=== PATIENT | female | born 1980 | race Hispanic/Latino ===

== ENCOUNTER 2017-01-18 12:16 | Day surgery (SDC) | payer BC ==
[~2017-01-18] VITALS: Ht 165.1 cm; Wt 71.7 kg
[~2017-01-18 12:16] MED LIST: ESTRADIOL2 MG PO; FLONASE ALLERG9.9 ML NS; IRON325 M1 PO; LEVOTHYROXINE25 MCG PO; MOTRIN800 MG PO; NORCO 5-325 TA1 EACH PO; PRENATAL VITAM1 EACH PO; PROVERA10 MG PO; SINGULAIR10 MG PO; VALIUM5 MG PO
[2017-01-18] MEDS ORDERED: VITAMIN B COMP1 EACH PO (12:35)
[2017-01-18] MEDS ORDERED: VITAMIN D2000 UNI1 PO (12:35)
--- NOTE | 2017-01-22 08:06 | OR ---
[facility] [address] [place], [place] [address] Signed DATE OF OPERATION: 01/18/2017 SURGEON: Amber Chaves MD PREOPERATIVE DIAGNOSES: Difficult peripheral intravenous access, need for colonoscopy. POSTOPERATIVE DIAGNOSES: Difficult peripheral intravenous access, need for colonoscopy. PROCEDURE: Right internal jugular central venous catheter placement. ANESTHESIA: 1% lidocaine. INDICATION: This 36-year-old woman is planned for colonoscopy today, but multiple attempts with ultrasound guidance by nursing staff to place a peripheral IV for administration of intravenous sedation have been unsuccessful. This includes both saphenous veins. At this point, central venous catheterization will be required to provide for IV access. She notes that she has had similar problems in the past, so she does not recall having had a central catheter before. She understands the risks of bleeding, infection, pneumothorax, and other unforeseen complications related to its placement and wished to proceed. FINDINGS: Dark nonpulsatile blood was noted from the right internal jugular vein. Good flow was noted. A postprocedure chest x-ray showed optimal position of the tip of the catheter in superior vena cava without sign of complication including no evidence of pneumothorax. PROCEDURE IN DETAIL: A written consent form was signed by the patient. In the supine position with mild Trendelenburg positioning, her face was turned towards the left. The right neck and subclavian area was prepared with chlorhexidine solution and draped sterilely. 1% lidocaine was injected over the right sternocleidomastoid muscle inferior to the crossing vein. Using the Seldinger technique, the right internal jugular vein was easily accessed. Dark nonpulsatile blood was noted. A flexible J-wire was passed down the needle and the needle was removed. Sterile draping and gown and gloves per hospital Electronically Signed By: AMBER CHAVES MD 01/22/17 0806 PATIENT NAME: JOSELUIS BOBO OPERATIVE REPORT DATE OF : 80 PHYSICIAN: AMBER CHAVES MD REPORT #: [id number] REPORT IS CONFIDENTIAL AND NOT TO BE RELEASED WITHOUT AUTHORIZATION [facility] [address] [place], [place] [address] Signed protocol were used as it is noted. The site was incised with an 11 blade and dilated with enclosed blue dilator, and subsequently a previously inspected and irrigated Arrow blue tip triple-lumen catheter was passed over the wire without problem. The wire was removed and aspiration on the distal port showed dark nonpulsatile blood. The Clave was replaced, and the catheter was once again aspirated and flushed. The catheter was withdrawn a bit, and a collar was applied to the catheter and secured to the skin with a nylon suture. A SorbaView dressing was applied. A postprocedure chest x-ray was obtained and found to be normal with good positioning. MD ROSHNI Oleary/WILL /[id number] Electronically Signed By: AMBER CHAVES MD 01/22/17 0806 PATIENT NAME: JOSELUIS BOBO OPERATIVE REPORT DATE OF : 80 PHYSICIAN: AMBER CHAVES MD REPORT #: [id number] REPORT IS CONFIDENTIAL AND NOT TO BE RELEASED WITHOUT AUTHORIZATION
--- NOTE | 2017-01-22 08:06 | OR ---
[facility] [address] [place], [place] [address] Signed DATE OF OPERATION: 01/18/2017 SURGEON: Amber Chaves MD PREOPERATIVE DIAGNOSES: 1. Familial polyposis, status post ileoanal pull-through with total proctocolectomy. 2. History of duodenal polyps. POSTOPERATIVE DIAGNOSES: 1. Multiple gastric polyps. 2. Unlikely duodenal polyps. 3. J-pouch with typical findings of submucosal nodularity. PROCEDURE: 1. Esophagogastroduodenoscopy with biopsy. 2. J-pouch endoscopy with biopsy. ANESTHESIA: Intravenous sedation, fentanyl 100 mcg, Versed 7 mg. INDICATION: This 36-year-old woman is known to have familial polyposis and underwent proctocolectomy with ileoanal pull-through (J-pouch). She underwent upper endoscopy [place] [address] Weston and was found to have duodenal polyps and had Endomark tattoo, marking of the duodenal mucosa. She last underwent upper endoscopy by me in 2011. Surveillance upper endoscopy was indicated to assess for duodenal polyps. Additionally, the patient has had some issues regarding her J-pouch and that she remains continent. She asked that the J-pouch be evaluated as well. She understands the risks of bleeding, infection, and perforation related to the endoscopic procedures and wished to proceed. FINDINGS: On upper endoscopy, she had a normal esophagus. The stomach had multiple small polyps almost certainly nonadenomatous type. The duodenum did have evidence of prior Endomark tattoo dye in the region of the duodenal bulb. I saw no obvious large polyps. There were two areas that were suggestive of possible small polyps and these were excised and a quality audit representative gastric polyp was biopsied as well. On the J-pouch, typical anatomy was noted. She does have a somewhat narrow anorectal opening related to her anastomosis from the past, but no stricture per se. There was no evidence of perianal swelling. The J-pouch had normal size capacity. The ileum and Electronically Signed By: AMBER CHAVES MD 01/22/17 0806 PATIENT NAME: JOSELUIS BOBO OPERATIVE REPORT DATE OF : 80 PHYSICIAN: AMBER CHAVES MD REPORT #: [id number] REPORT IS CONFIDENTIAL AND NOT TO BE RELEASED WITHOUT AUTHORIZATION [facility] [address] [place] [id number] Signed J-pouch itself had typical submucosal lymphoid nodules, but no sign of ulceration, neoplasm, or other problem. A quality audit representative lymphoid nodule was biopsied. PROCEDURE IN DETAIL: The patient brought to the OR as the endoscopy suite is out of commission currently, placed in lateral decubitus position after undergoing topical Hurricaine spray hypopharyngeal anesthesia. She was given intravenous sedation with full cardiopulmonary monitoring. A bite block was placed. An Olympus video upper endoscope was passed in the hypopharynx. The vocal cords were normal. Esophagus was examined throughout its length and was normal. The stomach was evaluated showing normal rugal folds with multiple small nodules, both proximally and distally. Pylorus was normal. Scope was passed through the end of the duodenum. The duodenum had a faint Endomark tattoo type finding and indicative of prior polypectomy site. The mucosa and the surrounding area did not show distinct polyps, but did show some minimal nodular changes, and therefore, these areas were excised. The scope was withdrawn from the stomach and a quality audit representative gastric polyp almost certainly representing hyperplastic type polyp was biopsied. Retroflexed view was normal. The scope was straightened, withdrawn, and removed. Remaining esophagus was normal. The table was rotated and additional sedation given. Digital rectal examination was undertaken, which was somewhat tight as is typically the case with stapled J-pouch anastomoses, but not strictured per se. The same upper endoscope was passed into the J-pouch and typical mucosa was identified including submucosal lymphoid nodules. The scope was advanced up into the ileum as far as possible, which measured a fair distance. There was no sign of actual polyp. A quality audit representative nodule was biopsied as was a similar such nodule in the low neorectum (J-pouch). The scope was retroflexed showing no anatomic problem or other issues. The scope was withdrawn and the patient was taken to the recovery room in good condition. CONCLUDING DIAGNOSES: 1. No clear evidence of duodenal polyps. Multiple gastric polyps, benign. 2. J-pouch typical appearance considering operative intervention. PLAN: Surveillance endoscopy will be appropriate depending on the findings on the biopsies. Electronically Signed By: AMBER CHAVES MD 01/22/17 0806 PATIENT NAME: JOSELUIS BOBO OPERATIVE REPORT DATE OF : 80 PHYSICIAN: AMBER CHAVES MD REPORT #: [id number] REPORT IS CONFIDENTIAL AND NOT TO BE RELEASED WITHOUT AUTHORIZATION [address] [address] Signed MD ROSHNI Oleary/KITTYL /[id number] cc: JOSUE Irving MD Electronically Signed By: AMBER CHAVES MD 01/22/17 0806 PATIENT NAME: JOSELUIS BOBO OPERATIVE REPORT DATE OF : 80 PHYSICIAN: AMBER CHAVES MD REPORT #: [id number] REPORT IS CONFIDENTIAL AND NOT TO BE RELEASED WITHOUT AUTHORIZATION
== END 2017-01-18 16:00 | disposition home or self-care (01) ==
LOC: DS 12:16 → OPS 12:16
PROVIDERS: Surgery
PROC: 05HM33Z Insertion of Infusion Device into Right Internal Jugular Vein, Percutaneous Approach (ICD-10-PCS; principal; 2017-01-18 13:00)
DX: Z45.2 Encounter for adjustment and management of vascular access device (principal); D64.9 Anemia, unspecified; F17.210 Nicotine dependence, cigarettes, uncomplicated; Z88.5 Allergy status to narcotic agent; Z88.0 Allergy status to penicillin; Z88.8 Allergy status to other drugs, medicaments and biological substances; Z98.890 Other specified postprocedural states
CPT/HCPCS: 71010; 99152; 99153; J1644; J2250; J3010

== ENCOUNTER 2018-05-28 13:07 | Day surgery (SDC) | payer BC ==
[~2018-05-28] VITALS: Ht 165.1 cm; Wt 74.8 kg
[~2018-05-28 13:07] MED LIST changes: +B COMPLEX1 EACH PO; +KELP150 MCG PO; +MULTIVITAMINS1 EAC7 PO; +VITAMIN B COMP1 EACH PO; +VITAMIN D310000 UNIT PO
--- NOTE | 2018-05-28 14:47 | NUR ---
05/28/18 1446 Corrie Watts 1436 PT ARRIVED IN PACU SLEEPY WITH NO C/O'S.
--- NOTE | 2018-05-30 09:24 | OR ---
[facility] [address] [place], [place] [address] Signed DATE OF OPERATION: 05/28/2018 SURGEON: Amber Chaves MD PREOPERATIVE DIAGNOSES: 1. Familial polyposis. 2. Surveillance for assessment of duodenal polyps. POSTOPERATIVE DIAGNOSES: 1. No certain polyps of duodenum. 2. Multiple fundic gland polyps and small pre-pyloric polyp. PROCEDURES: Esophagogastroduodenoscopy with gastric polypectomy x1 and duodenal mucosal biopsies x2. ANESTHESIA: Intravenous sedation, fentanyl 100 mcg, Versed 5 mg. INDICATION: This 37-year-old woman is a patient of Dr. Asencio and STANISLAW Irving. She is known to have a familial polyposis and has undergone total proctocolectomy with ileoanal pull-through (J-pouch). She has perfectly good function of the J-pouch. She last underwent upper endoscopy to assess for possible duodenal polyps in conjunction with her familial polyposis in 04/2016. She only had benign gastric polyps on upper endoscopy before. She is admitted to undergo upper endoscopy to assess for duodenal polyps. She understands the risks of bleeding, infection, perforation, findings. The topical agent (lidocaine atomized) was marginal and topical anesthesia. Good sedation was provided otherwise, however. She had no certain polyps of the duodenum. The areas of possible adenomatous hyperplasia were noted and these were biopsied. There was a pre-pyloric polyp, which was separate and distinct from most in the proximal stomach, which were multiple and most consistent with fundic gland polyps. This was excised as well. The flap valve was good. The esophagus was normal. DESCRIPTION OF PROCEDURE: The patient was brought to the endoscopy suite given topical anesthesia with atomized lidocaine. In the lateral decubitus position, she was given intravenous sedation to the point of slurred speech and nystagmus. Full cardiopulmonary monitoring was maintained. A bite block was placed. An Olympus video endoscope passed in the hypopharynx. Vocal cords were briefly visualized. She had a fair amount of gagging. The scope was Electronically Signed By: AMBER CHAVES MD 05/30/18 0924 PATIENT NAME: JOSELUIS BOBO OPERATIVE REPORT DATE OF : 80 REPORT #: [id number] PHYSICIAN: AMBER CHAVES MD PCP: Zuleika BEY MD REPORT IS CONFIDENTIAL AND NOT TO BE RELEASED WITHOUT AUTHORIZATION [facility] [address] [place], [place] [address] Signed advanced to the esophagus. Throughout its length, it was normal. Scope was passed to the stomach, which was insufflated with air. Excess gastric juices suctioned free. Additional sedation was given. The pre-pyloric antrum showed a small polyp that did not appear worrisome. The pylorus was normal and scope was passed through into the duodenum. The duodenum in the thirds and second portions were normal. In the second portion toward the bulbar portion showed an area of prior Endo Sami tattoo evidence. There is no clear evidence of polyp in this area. The second and third portions were surveilled closely for possible polyps. There was areas suggestive of adenomatous change, which were biopsied though there were not distinct polyps by any means. The ampulla was not even visualized. The scope was withdrawn and taken to the antrum where small pre-pyloric polyp was noted. This was excised with cold morcellation technique. Retroflexed view showed a normal flap valve and multiple fundic gland polyps. These were not excised or biopsied in any way. Scope was straightened withdrawn to the distal esophagus, which was normal. Careful withdrawal of scope showed no esophageal abnormalities. The scope was removed and the patient was taken to recovery room in good condition. CONCLUDING DIAGNOSES: 1. Familial polyposis. No clear evidence of duodenal polyps at this time. Biopsies taken of possible adenomatous change. 2. Pre-pyloric gastric polyp excised. 3. Proximal fundic gland polyps were left in situ. PLAN: We will review her pathology reports and determine the interval of time for followup endoscopy. MD ROSHNI Oleary/MODL /[id number] cc: MD Cheryl Barnett PA-C Electronically Signed By: AMBER CHAVES MD 05/30/18 0924 PATIENT NAME: JERAMIEJOSELUIS OPERATIVE REPORT DATE OF : 80 REPORT #: [id number] PHYSICIAN: AMBER CHAVES MD PCP: Zuleika BEY MD REPORT IS CONFIDENTIAL AND NOT TO BE RELEASED WITHOUT AUTHORIZATION [address] [address] Signed Copies: JOSELUIS ASENCIO MD, ERIKA PAC ~ Electronically Signed By: AMBER CHAVES MD 05/30/18 0924 PATIENT NAME: JERAMIEJOSELUISAFSHAN RIVERA OPERATIVE REPORT DATE OF : 80 REPORT #: [id number] PHYSICIAN: AMBER CHAVES MD PCP: Zuleika BEY MD REPORT IS CONFIDENTIAL AND NOT TO BE RELEASED WITHOUT AUTHORIZATION
== END 2018-05-28 15:20 | disposition home or self-care (01) ==
LOC: DS 13:07 → OPS 13:07 → DS 14:00 → OPS 15:20
PROVIDERS: Surgery
PROC: 0DB68ZZ Excision of Stomach, Via Natural or Artificial Opening Endoscopic (ICD-10-PCS; 2018-05-28)
PROC: 0DB98ZX Excision of Duodenum, Via Natural or Artificial Opening Endoscopic, Diagnostic (ICD-10-PCS; principal; 2018-05-28 14:00)
DX: D13.2 Benign neoplasm of duodenum (principal); K31.7 Polyp of stomach and duodenum; K25.9 Gastric ulcer, unspecified as acute or chronic, without hemorrhage or perforation; K29.70 Gastritis, unspecified, without bleeding; D64.9 Anemia, unspecified; F17.210 Nicotine dependence, cigarettes, uncomplicated; E66.3 Overweight; Z98.890 Other specified postprocedural states; Z88.0 Allergy status to penicillin; Z88.5 Allergy status to narcotic agent
CPT/HCPCS: 99153; G0500; J2250; J3010

== ENCOUNTER 2023-07-24 08:11 | Day surgery (SDC) | payer OTHER, BC ==
[~2023-07-24] VITALS: Ht 165.1 cm; Wt 84.5 kg
[~2023-07-24 08:11] MED LIST changes: +IBLOOD GLUCOSE TEST STRIP 1 EA TEST VI PRN; +LACTATED RINGER'S 1,000 ML IV SCH; +LIDOCAINE HCL 1% 5 ML SDV INJ ONE; +MIDAZOLAM HCL 5 MG/5 ML VIAL IV PRN; +fentaNYL citrate 100 MCG/2 ML VIAL IV PRN
[2023-07-24 09:25] LABS: PREGNANCY TEST, URINE NEGATIVE (NEG)
[2023-07-24 09:34] VITALS: BP 108/62
[2023-07-24] MEDS ORDERED: MIDAZOLAM HCL 5 MG/5 ML VIAL ONE (10:18)
[2023-07-24] MEDS ORDERED: fentaNYL citrate 100 MCG/2 ML VIAL ONE (10:18)
--- NOTE | 2023-07-24 11:25 | NUR ---
07/24/23 1125 Michelle Rojas 1115 PT ARRIVES TO THE PACU AWAKE AND TALKING WITH THE RN. RESP ARE EVEN AND UNLABORED. PT DENIES PAIN AND NAUSEA. 1124 PT WAKES AND REPORTS PAIN IN HER KNEE. PT ABLE TO ROLL TO HER BACK. PT EASILY FALLS BACK TO SLEEP WITH NO APPARENT DISTRESS. BP INCREASED TO BASELINE.
[2023-07-24 12:16] VITALS: BP 99/59
--- NOTE | 2023-07-24 12:39 | OR ---
[facility] [address] [place], [place] [address] Signed DATE OF OPERATION: 07/24/2023 SURGEON: Amber Chaves MD PREOPERATIVE DIAGNOSIS: History of total procto-colectomy with ileoanal pull-through (J-pouch) for familial polyposis. POSTOPERATIVE DIAGNOSES: 1. Upper endoscopy with gastric polyps (benign and no evidence of recurrent duodenal polyps). 2. Flexible sigmoidoscopy with no evidence of pouchitis or other abnormality. PROCEDURES: 1. Esophagogastroduodenoscopy with biopsy. 2. Flexible sigmoidoscopy with biopsy (J-pouchoscopy). ANESTHESIA: Intravenous sedation; fentanyl 150 mcg, Versed 8 mg. INDICATIONS: This 42-year-old woman is a patient of STANISLAW Irving. She is well known to me from the past. She has undergone total procto-colectomy with ileoanal pull-through (J-pouch) for familial polyposis. She underwent upper endoscopy by me in 2019, which showed a duodenal adenoma, which was negative for dysplasia. She had gastric polyps as well. Her last J-pouch endoscopy was in 2017, which showed some mucosal nodularity considered otherwise normal. She is generally symptom-free at this time. She is admitted at this time to undergo upper endoscopy to assess for duodenal polyp recurrence as well as evaluation of the J-pouch. She has no current symptoms of pouchitis. She understands the risk of bleeding, infection, and perforation related endoscopic procedures and wished to proceed. FINDINGS: Upper endoscopy showed a number of gastric polyps, which in the setting of familial polyposis are essentially benign. The duodenum was evaluated showing no obvious polyp. There was an area of prior tattoo showing no sign of recurrent adenoma of the duodenum. The esophagus and stomach were otherwise normal. She did have a fair amount of retching and gagging, which despite topical anesthesia and good sedation otherwise. On flexible sigmoidoscopy (J-pouchoscopy), there is no evidence of active pouch inflammation or other abnormality. Procedure the patient brought to the endoscopy suite and placed in Electronically Signed By: AMBER CHAVES MD 07/24/23 1239 PATIENT NAME: JOSELUIS SKINNER OPERATIVE REPORT DATE OF : 80 REPORT #: [id number] PHYSICIAN: AMBER CHAVES MD PCP: ELIZA MARSHALL MD REPORT IS CONFIDENTIAL AND NOT TO BE RELEASED WITHOUT AUTHORIZATION [facility] [address] [place] [address] Signed lateral decubitus position, given topical lidocaine pharyngeal anesthesia. A bite block was placed and she was given intravenous sedation with full cardiopulmonary monitoring. The Olympus video upper endoscope was passed in the hypopharynx. She had a fair amount of retching and resistance to the scope, but it was passed without problem or complication. Esophagus itself looked normal. Scope was passed to the stomach. There were a number of gastric polyps, all typical of familial polyposis and all benign in appearance. The antrum was left populated. Pylorus was normal. Scope was passed through into the duodenum. This was accompanied by a fair amount of retching and despite additional sedation. The area of previous adenoma with submucosal Endo jaqueline tattoo dye was noted. There was no sign of recurrent polyp there or elsewhere. The scope was withdrawn to the stomach and carefully withdrawn and removed showing no other abnormality. The scope was then removed. Plans were then made for a flexible sigmoidoscopy or pouchoscopy. Additional sedation was given. Digital rectal examination showed a somewhat narrowed anastomosis, which was somewhat uncomfortable on digital examination. This did allow for passage of the endoscope, however. The pouch was examined and found to have no evidence of active pouchitis or other abnormality. Retroflexed view did show transition between the ileum mucosa and the anal mucosa to be somewhat rough and the area was biopsied, though there was no actual neoplasm noted. The scope was removed. The patient was taken to the recovery room in good condition. CONCLUDING DIAGNOSES: 1. No evidence of recurrent duodenal polyp at this time. 2. 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 PLAN: We would recommend repeat upper endoscopy in 3-5 years or sooner if symptoms should develop. We will see her back in the office in 4-6 weeks to review her operative findings. MD ROSHNI Oleary/KITTYL /[id number] cc: Rafael Krause PA-C Electronically Signed By: AMBER CHAVES MD 07/24/23 1239 PATIENT NAME: JOSELUIS SKINNER OPERATIVE REPORT DATE OF : 80 REPORT #: [id number] PHYSICIAN: AMBER CHAVES MD PCP: ELIZA MARSHALL MD REPORT IS CONFIDENTIAL AND NOT TO BE RELEASED WITHOUT AUTHORIZATION [address] [address] Signed Copies: RAFAEL KRAUSE PAC ~ Electronically Signed By: AMBER CHAVES MD 07/24/23 1239 PATIENT NAME: JOSELUIS SKINNER OPERATIVE REPORT DATE OF : 80 REPORT #: [id number] PHYSICIAN: AMBER CHAVES MD PCP: ELIZA MARSHALL MD REPORT IS CONFIDENTIAL AND NOT TO BE RELEASED WITHOUT AUTHORIZATION
--- NOTE | 2023-07-27 16:31 | PATH ---
[facility] [address] [place], [place] [address] Signed SPECIMEN(S): A ANTRUM/PYLORUS BIOPSY SPECIMEN(S): B COLON POUCH BIOPSY SPECIMEN(S): C COLON POUCH JUNCTION BIOPSY SPECIMEN SOURCE: A. ANTRUM/PYLORUS BIOPSY B. COLON POUCH BIOPSY C. COLON POUCH JUNCTION BIOPSY CLINICAL HISTORY: Familial polyposis syndrome with ileo-anal pull through. FINAL PATHOLOGIC DIAGNOSIS: A. Antrum/pylorus, biopsy: - Polypod gastric type mucosa with tubular adenoma (one fragment). B. Colon pouch, biopsy: - Benign small bowel type mucosa, negative for dysplasia or evidence of malignancy. C. Colon pouch junction, biopsy: - Benign small bowel mucosa, negative for dysplasia. JVR:baudilio MICROSCOPIC EXAMINATION: Histologic sections of all submitted blocks are examined by light microscopy. These findings, together with the gross examination, support the pathologic diagnosis. GROSS DESCRIPTION: A. The specimen, labeled and designated "Skinner, antrum/pylorus biopsy," is received in formalin and consists of one rey soft tissue fragment, 0.3 cm. Entirely submitted in (A1). B. The specimen, labeled and designated "Skinner, colon pouch biopsy," is received in formalin and consists of three rey soft tissue fragments, ranging from 0.2-0.3 cm. Entirely submitted in (B1). C. The specimen, labeled and designated "Skinner, colon polyps junction biopsy," is received in formalin and consists of four rey soft tissue fragments, ranging from 0.2-0.4 cm. Entirely submitted in (C1). VB (under the direct supervision of a pathologist) The Gross Description was prepared using a voice recognition system. The report was reviewed for accuracy; however, sound-alike word errors, addition and/or PATIENT NAME: JOSELUIS SKINNER PATHOLOGY DATE OF : 80 REPORT #: [id number] PHYSICIAN: AUBREY SANTORO PCP: ELIZA MARSHALL MD REPORT IS CONFIDENTIAL AND NOT TO BE RELEASED WITHOUT AUTHORIZATION [facility] [address] [place], [place] [address] Signed deletions may occur. If there is any question about this report, please contact Client Services. ADDITIONAL NOTES: Immunohistochemical and/or in situ hybridization studies if performed in this case included appropriate positive controls that reacted as expected. This test was developed and its performance characteristics determined by [facility]. It has not been cleared or approved by the U.S. Food and Drug Administration. The FDA has determined that such clearance or approval is not necessary. This test is used for clinical purposes. It should not be regarded as investigational or for research. [facility] is certified under the Clinical Laboratory Improvement Amendments of 1988 (CLIA) as qualified to perform high complexity clinical laboratory testing. PERFORMING LABORATORY: Technical component was performed by [facility], [address] [place] [id number] (CLIA# [id number]). Professional interpretation was performed by [facility], [address] [place] [id number] (CLIA#: [id number]). Diagnostician: uOsmane Arauz MD Pathologist Electronically Signed 07/27/2023 Copies: ~ PATIENT NAME: JOSELUIS SKINNER PATHOLOGY DATE OF : 80 REPORT #: [id number] PHYSICIAN: AUBREY SANTORO PCP: ELIZA MARSHALL MD REPORT IS CONFIDENTIAL AND NOT TO BE RELEASED WITHOUT AUTHORIZATION
== END 2023-07-24 12:12 | disposition home or self-care (01) ==
LOC: OPS 08:11 → DS 08:11 → OPS 12:12
PROVIDERS: ATTEND Surgery
PROC: 0DB Gastrointestinal System, Excision (ICD-10-PCS; principal; 2023-07-24 10:15)
PROC: 0DB68ZX Excision of Stomach, Via Natural or Artificial Opening Endoscopic, Diagnostic (ICD-10-PCS; 2023-07-24 10:15)
DX: D13.1 Benign neoplasm of stomach (principal); R14.0 Abdominal distension (gaseous); Z86.010 Personal history of colon polyps; Z98.0 Intestinal bypass and anastomosis status
CPT/HCPCS: 84703; 99153; G0500; J2250; J3010; J7121

== ENCOUNTER 2024-02-14 16:49 | Observation (INO) | payer OTHER, BC ==
[~2024-02-14] VITALS: Ht 165.1 cm; Wt 70.8 kg
[~2024-02-14 16:49] MED LIST changes: -IBLOOD GLUCOSE TEST STRIP 1 EA TEST VI PRN; -LACTATED RINGER'S 1,000 ML IV SCH; -LIDOCAINE HCL 1% 5 ML SDV INJ ONE; -MIDAZOLAM HCL 5 MG/5 ML VIAL IV PRN; -fentaNYL citrate 100 MCG/2 ML VIAL IV PRN
[2024-02-14 17:51] LABS: BASOPHILS 0.7 % (0-2); HEMOGLOBIN 13.5 g/dL (12.0-18.0); LYMPHOCYTES 12.3 % (24-44); MCH 28.5 (27-36); MCHC 33.7 g/dl (30-36); MCV 84.8 fl (81-99); MONOCYTES 6.2 % (0-12); NEUTROPHILS 79.8 % (39-80); PLATELET COUNT 237 K/uL (140-440); RBC 4.72 M/ul (4.3-5.7); RDW 13.8 (10.5-15.0)
[2024-02-14 18:06] LABS: ALBUMIN 3.6 g/dL (3.4-5.0); ALBUMIN/GLOBULIN RATIO 0.9 (1.1-2.4); ANION GAP 10.2 (7-21); BILIRUBIN, TOTAL 0.6 ng/dL (0.2-1.0); BUN/CREATININE RATIO 15.94 (6.0-28.6); CALCIUM 8.8 mg/dL (8.5-10.1); CREATININE, SERUM 0.69 mg/dL (0.55-1.02); POTASSIUM 3.2 mmol/L (3.5-5.1); PROTEIN, TOTAL 7.6 g/dL (6.4-8.2)
[2024-02-14 18:52] LABS: BILIRUBIN, URINE NEGATIVE (negative); BLOOD/HGB, URINE NEGATIVE (Negative); KETONE, URINE SMALL (Negative); LEUK ESTERASE, URINE NEGATIVE (negative); NITRITE, URINE NEGATIVE (negative)
[2024-02-14 18:58] LABS: BACTERIA, URINE NONE SEEN /hpf (negative); CASTS, URINE NONE SEEN \\lpf; COLLECTION TYPE, URINE CLEAN CATCH; CRYSTALS, URINE NONE SEEN (0-1+); EPITHELIAL CELLS, URINE SQUAMOUS 1+ /lpf (0-1+); RED BLOOD CELLS, URINE 0-1 /hpf (0-5); REFLEX CULTURE, URINE No (No); WHITE BLOOD CELLS, URINE 0-1 /HPF (0-5)
[2024-02-14] MEDS ORDERED: KETOROLAC TROMETHAMINE 15 MG/ML VIAL IV ONE (19:15)
[2024-02-14] MEDS ORDERED: fentaNYL citrate 100 MCG/2 ML VIAL IV ONE (19:15)
[2024-02-14] MEDS ORDERED: ondansetron HCL 4 MG/2 ML VIAL IV ONE (19:15)
[2024-02-14] MEDS ORDERED: ACETAMINOPHEN 325 MG TAB PO PRN (20:30)
[2024-02-14] MEDS ORDERED: DEXTROSE 5% - LACTATED RINGERS 1,000 ML IV SCH (20:30)
[2024-02-14] MEDS ORDERED: KETOROLAC TROMETHAMINE 30 MG/ML VIAL IV PRN (20:30)
[2024-02-14] MEDS ORDERED: ondansetron HCL 4 MG/2 ML VIAL IV PRN (20:30)
[2024-02-14] MEDS ORDERED: HYDROmorphone HCL 1 MG/ML SYR IV PRN (20:30)
[2024-02-14] MEDS ORDERED: LIDOCAINE 2% VISCOUS 6 ML SYR MM ONE (20:45)
--- NOTE | 2024-02-14 21:15 | NUR ---
patient arrived to ccu room 126 via stretcher. patient able to ambulate off stretcher and to ccu bed, steady on feet. handoff report received from MAGGY Rocha.
[2024-02-14 21:29] VITALS: BP 107/76
--- NOTE | 2024-02-14 21:45 | NUR ---
patient oriented to room and updated on plan of care. patient sister remains at bedside. patient is pleasant, alert and oriented x4. IV site WNL. patient states abdominal pain is 6/10, but denies wanting any pain medication at this time. patient NG tube in place. denies any nausea. patient on room air, saturating at 97%, vital signs stable. patient provided with a warm blanket, call light within reach.
--- NOTE | 2024-02-14 22:15 | NUR ---
patient up to bathroom, voids 200cc, and back to bed. patient steady on feet. no further needs at this time. call light within reach.
--- NOTE | 2024-02-14 23:00 | NUR ---
PATIENT RESTING WITH EYES CLOSED, RESPIRATIONS EVEN AND UNLABORED. PATIENT APPEARS TO BE COMFORTABLE. CALL LIGHT WITHIN REACH, BED IN LOW AND LOCKED POSITION.
[2024-02-15] VITALS (11 sets, daily range): BP systolic 105–137; BP diastolic 63–81
--- NOTE | 2024-02-15 01:04 | NUR ---
PATIENT AWAKE IN BED. PATIENT STATES HER PAIN IS 5/10, BUT DENIES WANTING PAIN MEDICATION AT THIS TIME. NO NEEDS AT THIS TIME. CALL LIGHT WITHIN REACH.
--- NOTE | 2024-02-15 01:26 | NUR ---
ROUNDED ON PT. EYES CLOSED, RESP EVEN AND UNLABORED, NOTED SL SNORING HEARD. O2 ON RA 94, R 15 PER MONITOR. NG TUBE LIWS, WITH BROWNISH LIQUID IN TUBING.
--- NOTE | 2024-02-15 01:49 | NUR ---
ROUNDED ON PT. POSITION UNCHANGED FROM PREVIOUS ROUNDING. MONITOR READING RR 14; SATS 93. SNORING OCCASSIONALLY CONTINUES.
--- NOTE | 2024-02-15 02:35 | NUR ---
patient resting in bed with eyes closed, respirations even and unlabored. patient remains on room air, O2 saturation at 97%. no needs at this time. call light within reach.
--- NOTE | 2024-02-15 03:29 | NUR ---
patient up to bathroom, steady on feet. patient voids 100cc of urine, and has small liquid BM. patient back to bed. patient states pain level is 5/10, denies wanting any pain medication at this time. patient provided with warm blanket. no further needs at this time. call light within reach.
--- NOTE | 2024-02-15 05:03 | NUR ---
LAB IN PATIENT ROOM TO DRAW AM LABS
[2024-02-15 05:40] LABS: BASOPHILS 0.2 % (0-2); EOSINOPHILS 1.5 % (0-6); HEMATOCRIT 36.5 % (35.0-50.0); HEMOGLOBIN 12.6 g/dL (12.0-18.0); LYMPHOCYTES 20.9 % (24-44); MCH 29.1 (27-36); MCHC 34.5 g/dl (30-36); MCV 84.4 fl (81-99); NEUTROPHILS 68.4 % (39-80); PLATELET COUNT 216 K/uL (140-440); RBC 4.32 M/ul (4.3-5.7); RDW 14.2 (10.5-15.0)
--- NOTE | 2024-02-15 05:45 | NUR ---
patient awake in bed. patient rates pain 4/10, denies needing any pain medication at this time. NG tube continues to be on LIWS, small amount of brownish drainage noted in tubing. patient IV site WNL, IVF infusing per EMAR. patient has no needs at this time. call light within reach.
[2024-02-15 05:57] LABS: ALBUMIN 2.9 g/dL (3.4-5.0); ALBUMIN/GLOBULIN RATIO 0.83 (1.1-2.4); ANION GAP 10.4 (7-21); BILIRUBIN, TOTAL 0.4 ng/dL (0.2-1.0); BUN/CREATININE RATIO 19.29 (6.0-28.6); CALCIUM 8.2 mg/dL (8.5-10.1); CREATININE, SERUM 0.57 mg/dL (0.55-1.02); MAGNESIUM 1.6 mg/dL (1.8-2.4); POTASSIUM 3.4 mmol/L (3.5-5.1); PROTEIN, TOTAL 6.4 g/dL (6.4-8.2)
--- NOTE | 2024-02-15 07:30 | NUR ---
REPORT RECEIVED FROM CHIEF OPERATING OFFICER RN. PATIENT RESTING IN BED. REQUEST ASSISTANCE TO THE BATHROOM. PATIENT ASSISTED 1 PA STAND BY ASSIST TO BATHROOM. PATIENT AMBULATED WELL WITH NO ISSUES OR CONCERNS. DENIES ANY NAUSEA. NOTED EXTRA SMALL BM. PATIENT REPORTS CONTINUED PAIN, DENIES WANT/NEED FOR ADITIONAL PAIN MEDICATIONS AT THIS TIME. PATIENT ASSISTED BACK INTO BED. NO FURTHER NEEDS AT THIS TIME. CALL LIGHT WITHIN REACH.
--- NOTE | 2024-02-15 08:49 | NUR ---
PATIENT RESTING IN BED. ALERT ASND ORIENTED TO PERSON, PLACE, TIME AND LOCATION. PATIENT REPORTS PRN PAIN MEDICATION FROM EARILER WAS HELPFUL. REPORTS PAIN IS NOT CONSTANT AT THIS TIME. DENIES ANY NAUSEA. ABD SOFT NON TENDER AT THIS TIME. BOWEL TONES HYPOACTIVE X 4 QUADRANTS. LUNGS CTA DIM IN BASES. AFEBRILE. NGT IN PLACE ON LOW INT. SUCTION. CONTENTS FROM NGT SCANT AT THIS TIME. MILDLY RED/BROWN IN COLOR. IV SITE PATENT AND WNL. DENIES ANY NEEDS AT THIS TIME. CALL LIGHT WITHIN REACH.
--- NOTE | 2024-02-15 09:50 | NUR ---
MD IN ROOM WITH PATIENT AT THIS TIME.
--- NOTE | 2024-02-15 10:32 | NUR ---
PATIENT UP TO BATHROOM. AMBULATING WELL. ABD REMAINS SOFT NON TENDER. DENIES NAUSEA. PASSING GAS NGT REMAINS IN PLACE AND FUNCTIONING WNL. IV SITE WNL. PATIENT BACK IN BED. NO FURTHER NEEDS AT THIS TIME. CALL LIGHT WITHIN REACH.
[2024-02-15] MEDS ORDERED: ondansetron HCL 4 MG/2 ML VIAL IV PRN (10:45)
[2024-02-15] MEDS ORDERED: DEXTROSE 5% - LACTATED RINGERS 1,000 ML IV SCH (10:45)
[2024-02-15] MEDS ORDERED: PROCHLORPERAZINE EDISYLATE 10 MG/2 ML VIAL IV PRN (10:45)
[2024-02-15] MEDS ORDERED: HYDROmorphone HCL 1 MG/ML SYR IV PRN (10:45)
[2024-02-15] MEDS ORDERED: ENOXAPARIN SODIUM 40 MG/0.4 ML SYR SUB-Q SCH (10:49)
[2024-02-15] MEDS ORDERED: PANTOPRAZOLE SODIUM 40 MG/10 ML VIAL IV SCH (10:49)
[2024-02-15] MEDS ORDERED: POTASSIUM CHLORIDE 40 MEQ,LIDOCAINE HCL 1% 40 MG in DEXTROSE 5% 250 ML IV ONE (11:15)
[2024-02-15] MEDS ORDERED: MAGNESIUM SULFATE 2 GM/50 ML BAG IV ONE (11:15)
--- NOTE | 2024-02-15 11:16 | NUR ---
RN SPOKE WITH MD VIA PHONE REGUARDING MAGNESIUM AND POTASSIUM LABS. NEW ORDERS RECEIVED VIA TELEPHONE. VERBAL READ BACK VERIFICATION. SEE MAR.
--- NOTE | 2024-02-15 11:42 | NUR ---
NGT SET TO GRAVITY. PATIENT SITTING UP IN RECLINER. DENIES ANY NEEDS AT THIS TIME. DENEIS ANY NAUSEA. CALL LIGHT WITHIN REACH.
--- NOTE | 2024-02-15 13:21 | NUR ---
UR CLINICAL REVIEW: EDD, MEETS GENERAL OBSERVATION GUIDELINE FOR OBS [facility] 02/14/24 @ 2009 ORDER MATCHES REG AUTH PENDING, WILL SEND CLINICALS IF REQUESTED. PLAN TO DC TO HOME WHEN STABLE. 02/16/24
--- NOTE | 2024-02-15 13:37 | NUR ---
PATIENT CONTINUES RESTING IN RECLINER. DENEIS ANY NAUSEA AT THIS TIME. BOWEL TONES HYPOACTIVE. ABD SOFT NON TENDER AT THIS TIME. REPORTS PAIN IS A 5/10 DOES NOT WISH TO HAVE PAIN MEDICATIONS AT THIS TIME. PATIENT UP TO BATHROOM. PASSING GAS, VOID. ASSISTED PATIENT BACK TO RECLINER. NO FURTHER NEEDS AT THIS TIME. CALL LIGHT WITHIN REACH.
--- NOTE | 2024-02-15 14:30 | NUR ---
Spoke with Karmen. She denies needs. Resting with NG tube in place. Spouse in room. Cm assessment completed and she denies any needs for a safe dc. She does not use any DME and does not have any financial problems. Has a hx of obst. bowel, but states it has been a long time. Plans on dc to home when cleared medically for dc.
--- NOTE | 2024-02-15 15:15 | NUR ---
CALL LIGHT ANSWERED. IV PUMP ALARMING. NEW BAG OF IVF HUNG. PATIENT DENIES ANY NEEDS AT THIS TIME. CALL LIGHT WITHIN REACH.
[2024-02-15] MEDS ORDERED: KETOROLAC TROMETHAMINE 30 MG/ML VIAL IV PRN (16:30)
--- NOTE | 2024-02-15 16:35 | NUR ---
CALL LIGHT ANSWERED. PATIENT ASSISTED TO BATHROOM. PASSING GAS. C/O INCREASED PAIN, REFUSED TO HAVE PRN DILAUDID. MD CONTACTED NEW ORDERS RECEIVED FOR PRN PAIN MEDICATIONS. ORDERS VERIFIED VIA VERBAL READ BACK. PATIENT C/O NAUSEA. PRN ADMINSTERED.
--- NOTE | 2024-02-15 17:30 | NUR ---
PATIENT REQUESTING TO TAKE A SHOWER. RN ASSISTED PATIENT WITH SHOWER. PATIENT ABLE TO TOLLERATE SHOWER WELL. NGT IN PLACE TO GRAVITY. NGT WITH NOTED DRAINAGE OF 20MLS. IV SITE REMAINS PATENT AND WNL. BOWEL TONES HYPOACTIVE, PATIENT DENIES NAUSEA AT THIS TIME. PASSING GAS. PATIENT'S FAMILY AT BEDSIDE. NO FURTHER NEEDS CALL LIGHT WITHIN REACH.
--- NOTE | 2024-02-15 19:36 | NUR ---
REPORT RECEIVED FROM JANET RN. PATIENT RESTING IN BED AFTER BEING UP TO BATHROOM TO VOID. DENIES NEEDS OR CONCERNS AT THIS TIME. CALL LIGHT IN REACH. IVF INFUSING WITHOUT DIFFICULTY. PATIENT ON TELEMETRY, SINUS RHYTHM IN THE 70S. REVIEWED CONTINUED TELEMETRY NEED WITH DR. CARRILLO. ORDER RECEIVED TO DC TELEMETRY.
--- NOTE | 2024-02-15 21:14 | NUR ---
ROUNDING ON PATIENT. REQUESTS ASSISTANCE TO BATHROOM. PATIENT VOIDED 100ML CLEAR YELLOW URINE AND HAD A VERY SMALL LOOSE BM. BACK TO BED. SCDS ON. EDUCATION PROVIDED ON SCDS AND USE. PATIENT VERBALIZED UNDERSTANDING. SAFETY PRECAUTION EDUCATION PROVIDED TO INCLUDE ASSISTANCE WITH REMOVING SCDS AND CALL LIGHT USE FOR ASSISTANCE. PATIENT VERBALIZED UNDERSTANDING. WHILE IN BATHROOM, PATIENT HAD A GAGGING EPISODE. REPORTED THE NGT TUBE WAS MAKING HER GAG. INSTRUCTED TO SLOW BREATHING THROUGH NOSE AND ALCOHOL WIPE GIVEN TO SNIFF. GAGGING RESOLVED AND PATIENT REPORTED INTERVENTION HELPED. CALL LIGHT AND PERSONAL ITEMS IN REACH.
--- NOTE | 2024-02-15 21:27 | NUR ---
PATIENT REPORTS NAUSEA. MEDICATED PER EMAR. REPORTS PAIN IS "OKAY" AND DECLINES PAIN MEDICATION AT THIS TIME. REQUESTED PATIENT INFORM NURSING STAFF IF PAIN INCREASES OR SHE WOULD LIKE PAIN MEDICATION. PATIENT DENIES OTHER NEEDS OR CONCERNS AT THIS TIME. CALL LIGHT IN REACH.
--- NOTE | 2024-02-15 22:21 | NUR ---
PATIENT WAKES EASILY TO THIS RN IN ROOM. REPORTS NAUSEA HAS IMPROVED. DENIES NEEDS AT THIS TIME. CALL LIGHT IN REACH.
--- NOTE | 2024-02-15 23:55 | NUR ---
PATIENT CALLED NURSES STATION TO REQUEST RESOURCE TEACHER TO THE BATHROOM. THIS RN INTO ASSIST, PATIENT STANDBY ASSIST FOR LINE MANAGEMENT. PATIENT HAD SMALL LIQUID BM AND 125ML URINE IN HAT. PATIENT REPORTS NO OTHER NEEDS, CALL LIGHT IN REACH.
[2024-02-16] VITALS (8 sets, daily range): BP systolic 104–120; BP diastolic 58–65
--- NOTE | 2024-02-16 00:57 | NUR ---
PATIENT WAKES EASILY FOR VS. COMPLAINS OF 5/10 ABDOMINAL PAIN. MEDICATED WITH TORADOL PER EMAR. NEW BAG IVF HUNG. DENIES NAUSEA AT THIS TIME. DENIES OTHER NEEDS OR CONCERNS. BOWEL SOUNDS UNCHANGED FROM PREVIOUS ASSESSMENT, HYPOACTIVE IN RUQ, LUQ AND RLQ; ACTIVE IN LLQ. CALL LIGHT IN REACH.
--- NOTE | 2024-02-16 01:57 | NUR ---
PATIENT RESTING WITH EYES CLOSED. RESPIRATIONS EVEN AND UNLABORED. PATIENT REPOSITIONS IN BED INDEPENDENTLY. SCDS ON. CALL LIGHT IN REACH.
--- NOTE | 2024-02-16 03:41 | NUR ---
PATIENT HEARD COUGHING. UPON ARRIVAL TO ROOM PATIENT FOUND TO BE AWAKE. REPORTS SHE IS FINE, STATED "I WAS JUST CLEARING SOME PHLEGM". REPORTS PAIN IMPROVED WITH TORADOL. DENIES NEEDS AT THIS TIME. CALL LIGHT IN REACH.
--- NOTE | 2024-02-16 05:19 | NUR ---
LAB IN ROOM TO DRAW BLOOD. PATIENT UPDATED ON MOVE TO MED SURG. REPORT GIVEN TO MAGGY TROY.
[2024-02-16 05:22] LABS: BASOPHILS 0.2 % (0-2); EOSINOPHILS 1.1 % (0-6); HEMATOCRIT 32.8 % (35.0-50.0); HEMOGLOBIN 11.4 g/dL (12.0-18.0); LYMPHOCYTES 17.3 % (24-44); MCH 29.2 (27-36); MCHC 34.6 g/dl (30-36); MCV 84.2 fl (81-99); MONOCYTES 8.6 % (0-12); NEUTROPHILS 72.8 % (39-80); PLATELET COUNT 198 K/uL (140-440); RDW 13.9 (10.5-15.0)
[2024-02-16 05:36] LABS: ANION GAP 10.7 (7-21); BUN/CREATININE RATIO 9.25 (6.0-28.6); CREATININE, SERUM 0.54 mg/dL (0.55-1.02); MAGNESIUM 1.6 mg/dL (1.8-2.4); PHOSPHORUS, INORGANIC 3.4 mg/dL (2.5-4.9); POTASSIUM 3.7 mmol/L (3.5-5.1)
--- NOTE | 2024-02-16 05:50 | NUR ---
PT TRANSFERRED OVER TO MED SURG DEPARTMENT, REPORT RECEIVED FROM MAIDA WINTER. PT IS ALERT AND AWAKE, DENIES NAUSEA. NGT IN PLACE TO GRAVITY. DOES C/O ABDOMINAL "BLOATING" AND PAIN ASSOCIATED WITH THAT, DOES NOT WANT DILAUDID BUT WILL TAKE TORADOL WHEN IT IS AVAILABLE AGAIN. SHE IS ALERT AND ORIENTED, AMBULATED TO BATHROOM SBA STEADY ON HER FEET, HAD LOOSE STOOL AND VOIDED 200. WILL TRY TO SLEEP NOW, CALL LIGHT IN REACH AND SCDS ON.
--- NOTE | 2024-02-16 07:05 | NUR ---
REPORT REC'D FROM NIGHT RN. PT RESTING IN BED, NO C/O AT THIS TIME. TO BE MEDICATED WITH TORADOL AT 0845
--- NOTE | 2024-02-16 08:01 | NUR ---
Board has been updated and call light has been placed within reach
--- NOTE | 2024-02-16 08:13 | NUR ---
THIS RN NOTIFIED BY TAMI CALABRESE OF PT RIGHT ARM SWELLING. NOTED RIGHT WRIST IV INFILTRATED. RIGHT FOREARM IS SWOLLEN. INFUSION STOPPED. PRIMARY NURSE DEYSI BEATTY RN NOTIFIED. PT ENCOURAGED TO ELEVATED ARM. PT DENIES TINGLING OR NUMBNESS. REPORTS ARM FEELS, "TIGHT." PT UP TO BATHROOM WITH TAMI CALABRESE.
--- NOTE | 2024-02-16 08:20 | NUR ---
NOTIFIED PATIENT IV SITE TO R FA INFILTRATED. IV DC'D, ARM BAND REMOVED AND REPLACED TO LEFT ARM. LEFT ARM SWELLING FROM ELBOW TO FINGERS, ELEVATED ON PILLOW AND WARM COMPRESS APPLIED. CMS INTACT. PT INSTRUCTED TO CALL FOR CHANGE IN SENSANTION, PAIN, OR COLDNESS.
--- NOTE | 2024-02-16 08:50 | NUR ---
MED REC COMPLETE
--- NOTE | 2024-02-16 08:54 | CONS ---
[facility] [address] [place], [place] [address] Signed DATE OF CONSULTATION: 02/15/2024 CHIEF COMPLAINT: Generalized abdominal pain. HISTORY OF PRESENT ILLNESS: Ashlyn is a 43-year-old female with a known history of familial adenosis polyposis syndrome. Her father and daughter also had familial adenosis polyposis syndrome. They have all been through total abdominal proctocolectomy with ileoanal J-pouch anastomoses. I first met Ashlyn close to 18 years ago. She required a duodenostomy at that time for duodenal polyps with some dysplasia. Fortunately, they came back fine. She has had followup in [place] as well as locally and she has done well. She has had some benign polyps taken out of the duodenum since that time with the endoscope. The gastric polyps have been benign as well. She describes a small bowel obstruction, maybe 2019. When she feels that coming on, she normally cuts back her eating, lays on her stomach with some pressure and it usually resolves on its own. When she had some abdominal pain and nausea, decided she come to the emergency room for evaluation. Her vital signs were fine. Her abdominal exam is not particularly concerning. White count was 10, it is down to 7.2. Her CT scan showed a transition point in the right paramidline. I have been asked to admit her as a general surgeon adventure education teacher last night. She had an NG tube placed. There was very minimal in the NG tube canister this morning. She told me she has already been to the bathroom once this morning and passed liquid stool. She normally has around 6 or 8 liquid bowel movements a day. She actually wanted to know if she could go home. On exam, she is a little distended, but soft. There is no tympany and certainly no peritoneal signs or symptoms. PAST MEDICAL HISTORY: familial adenosis polyposis syndrome and small bowel obstruction in 2019. PAST SURGICAL HISTORY: Includes her total abdominal proctocolectomy with ileoanal J-pouch anastomosis at [facility] around age 21. She had four pregnancies but lost three of those pregnancies. Her daughter was born via . She has had an appendectomy in the past. I helped her with duodenostomy in 2006 for her polypectomy. She had multiple upper and lower endoscopies. In July of this year, she just had upper and lower endoscopy with Dr. Restrepo. Her J-pouch was fine. She had a few benign gastric polyps removed. She had previous upper endoscopy in [address] Restrepo and again she had some benign gastric polyps and a benign duodenal adenoma was removed. She had an unremarkable flex-sig in [address] Restrepo. SOCIAL HISTORY: She quit smoking. She does not drink. She is and has one daughter, Reji Cherry at [phone]. Veena Issa is her nurse practitioner over in [place], Electronically Signed By: DORA CARRILLO MD 02/16/24 0854 PATIENT NAME: ASHLYN SKINNER CONSULTATION DATE OF : 80 REPORT #: [id number] PHYSICIAN: DORA CARRILLO MD PCP: ELIZA MARSHALL MD REPORT IS CONFIDENTIAL AND NOT TO BE RELEASED WITHOUT AUTHORIZATION [facility] [address] [place] [id number] Signed [place]. She prefers the [facility] pharmacy here in [place]. She has a house here in [place]. She lives with her and her daughter. 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 She is now working over the [employer]. FAMILY HISTORY: Her dad and daughter both have FAP. REVIEW OF SYSTEMS: She had 10 systems reviewed and there were no new issues other than this partial small bowel obstruction that bothers her intermittently. ALLERGIES: Penicillin, lorazepam, and morphine. MEDICATIONS: 1. Iron sulfate. 2. Vitamin D. 3. . 4. A multivitamin. PHYSICAL EXAMINATION: VITAL SIGNS: Her blood pressure is 108/67, heart rate is 68, respiratory rate 13, temperature is 98.7. She is 98% on room air. She is 5 feet 5 inches tall, weight 70 kg with a body mass index of 26. GENERAL: Ashlyn is a 43-year-old female lying supine in her hospital bed with her NG tube in place. Our nurse, Roberto Carlos, is with this as well. She is in no acute distress. LUNGS: Clear to auscultation bilaterally. HEART: Regular rate and rhythm without murmurs. ABDOMEN: Mildly distended, but it is soft and nontender and dull to percussion. LABORATORY DATA: Her white blood cell count was 10, it is now 7. Her hemoglobin is 13, is now 12. Her electrolytes and BUN and creatinine are unremarkable. Magnesium slightly low at 1.6. Liver function tests are negative. Albumin is 2.9. Urine specific gravity was up a little over 1.030. The HCG is negative. RADIOGRAPHIC STUDIES: CT scan of the abdomen and pelvis is reviewed along with the report. She does have dilated small bowel with a transition point in the right paramidline. We can see the chichi from her J-pouch to the anus. ASSESSMENT AND PLAN: Ashlyn is a 43-year-old female, who has a history of familial adenosis polyposis Electronically Signed By: DORA CARRILLO MD 02/16/24 0854 PATIENT NAME: ASHLYN SKINNER CONSULTATION DATE OF : 80 REPORT #: [id number] PHYSICIAN: DORA CARRILLO MD PCP: ELIZA MARSHALL MD REPORT IS CONFIDENTIAL AND NOT TO BE RELEASED WITHOUT AUTHORIZATION [facility] [address] [place], [place] [address] Signed syndrome. She had her total abdominal proctocolectomy with J-pouch anastomosis around age 21. She said she has suffered with a partial small bowel obstruction just to the right of midline for many years. She normally can lay on her stomach and have it resolved. On this occasion, she wanted to come to the hospital. She is already passing some liquid stool and was hoping she should go home. I told Ashlyn it is probably gipson that she stay at least one more day if not two and we will see how she proceeds on a conservative basis. She has expressed understanding and agrees with the above plan. Dora Carrillo MD ALB/MODL /[id number] cc: JAIRO Nobles MD Copies: DORA CARRILLO MD ~ Electronically Signed By: DORA CARRILLO MD 02/16/24 0854 PATIENT NAME: ASHLYN SKINNER NICOLE CONSULTATION DATE OF : 80 REPORT #: [id number] PHYSICIAN: DORA CARRILLO MD PCP: ELIZA MARSHALL MD REPORT IS CONFIDENTIAL AND NOT TO BE RELEASED WITHOUT AUTHORIZATION
[2024-02-16] MEDS ORDERED: POTASSIUM PHOSPHATE 30 MMOL in DEXTROSE 5% 500 ML IV ONE (09:00)
[2024-02-16] MEDS ORDERED: MAGNESIUM OXIDE 400 MG TABLET PO SCH (09:17)
[2024-02-16] MEDS ORDERED: ACETAMINOPHEN 325 MG TAB PO PRN (09:30)
[2024-02-16] MEDS ORDERED: PANTOPRAZOLE SODIUM 40 MG TABEC PO SCH (10:00)
--- NOTE | 2024-02-16 10:54 | NUR ---
PT INSTRUCTED ON CLD, BARBI SIFUENTES
--- NOTE | 2024-02-16 11:54 | NUR ---
PT RESTING IN BED, NO C/O N/V, TOLERATING CLD. R FA, DECREASING IN SWELLING, CMS INTACT.
--- NOTE | 2024-02-16 12:31 | NUR ---
SPOKE WITH DR. CARRILLO, DIET ADVANCED TO FLD. RN TO CONTACT DR. CARRILLO LATER THIS AFTERNOON WITH PATIENT UPDATE TO DETERMINE IF READY FOR DISCHARGE. PT UPDATED ON DIET ORDERS.
--- NOTE | 2024-02-16 15:02 | NUR ---
PT R FA REMAINS SWOLLEN. CMS REMAINS INTACT, REMAINS ELEVATED ON PILLOW. CONTINUE TO MONITOR
[2024-02-17] MEDS ORDERED: PANTOPRAZOLE SODIUM 40 MG TABEC PO SCH (09:00)
== END 2024-02-16 17:40 | disposition home or self-care (01) ==
LOC: ED 16:49 → CCU 16:50 → MS 02-16 05:56
PROVIDERS: Emergency Medicine; Family Medicine; ADMIT Colon & Rectal Surgery; ATTEND Colon & Rectal Surgery
DX: K56.609 Unspecified intestinal obstruction, unspecified as to partial versus complete obstruction (principal); Z87.891 Personal history of nicotine dependence; Z87.19 Personal history of other diseases of the digestive system; Z88.0 Allergy status to penicillin; Z88.5 Allergy status to narcotic agent; Z88.8 Allergy status to other drugs, medicaments and biological substances; Z98.0 Intestinal bypass and anastomosis status; Z90.49 Acquired absence of other specified parts of digestive tract; Z83.72 Family history of familial adenomatous polyposis
CPT/HCPCS: 36415; 71045; 74176; 80048; 80053; 81001; 83690; 83735; 84100; 84703; 85025; 96361; 96365; 96366; 96367; 96372; 96374; 96375; 96376; 99285-25; A9270; G0378; J0780; J1650; J1885; J2405; J2470; J3475; J3480; J3490; J7060; J7121

== ENCOUNTER 2024-06-05 10:26 | Day surgery (SDC) | payer OTHER, BC ==
[~2024-06-05] VITALS: Ht 165.1 cm; Wt 64.1 kg
[~2024-06-05 10:26] MED LIST changes: +PROGESTERONE200 MG PO
[2024-06-05 10:47] VITALS: BP 113/58
[2024-06-05] MEDS ORDERED: LACTATED RINGER'S 1,000 ML IV SCH (11:15)
[2024-06-05] MEDS ORDERED: MIDAZOLAM HCL 5 MG/5 ML VIAL ONE (11:50)
[2024-06-05] MEDS ORDERED: fentaNYL citrate 100 MCG/2 ML VIAL ONE (11:50)
--- NOTE | 2024-06-05 12:41 | NUR ---
06/05/24 1241 Sheets,Danii 1235 PT ARRIVED TO PACU ON 3L NC AND ASLEEP. RESP EVEN AND UNLABORED.
[2024-06-05 13:16] VITALS: BP 107/62
--- NOTE | 2024-06-08 12:30 | OR ---
[facility] [address] [place], [place] [address] Signed DATE OF OPERATION: 06/05/2024 SURGEON: Amber Chaves MD PREOPERATIVE DIAGNOSES: 1. History of familial polyposis, status post total proctocolectomy with ileoanal pull-through (J-pouch). 2. Episodic near-complete bowel obstruction related to ileoanal pouch. POSTOPERATIVE DIAGNOSIS: Anastomotic stricture, pouch anal anastomosis. PROCEDURES: 1. Flexible sigmoidoscopy beyond 90 cm. 2. Digital dilation of anastomotic stricture. ANESTHESIA: Intravenous sedation, fentanyl 150 mcg and Versed 6 mg. INDICATIONS FOR THE PROCEDURE: This 43-year-old woman a number of years ago underwent total proctocolectomy with ileoanal pull-through (J-pouch). The indication of familial polyposis. In the past year or so, she has had increasing episodes of abdominal pain, dilation of the small bowel, and suggestion of small bowel obstruction. An antegrade study showed what appeared to be a stricture in the distal small bowel. Whether this was related to a segment of small bowel above the J-pouch or anastomosis itself was rather unclear. I have offered a flexible sigmoidoscopy and dilation with balloon if appropriate or other means depending on the location of the stricture. The risk of bleeding, infection, and perforation were reviewed with her in detail. She understands and wished to proceed. FINDINGS: It appears that the anastomotic area was the area of stricture after all. This was extremely uncomfortable for her, for which IV sedation was quite beneficial. Digital dilation was undertaken. Endoscopic evaluation was undertaken of the J pouch and more proximal small bowel extending the level of inspection to about 100 mL. The mucosa of the small bowel was entirely normal. Otherwise, there was more proximal anastomosis. The anastomosis once digitally dilated was durably well opened at conclusion of the procedure. Electronically Signed By: AMBER CHAVES MD 06/08/24 1230 PATIENT NAME: JOSELUIS SKINNER OPERATIVE REPORT DATE OF : 80 REPORT #: [id number] PHYSICIAN: AMBER CHAVES MD PCP: JENARO VASQUEZ REPORT IS CONFIDENTIAL AND NOT TO BE RELEASED WITHOUT AUTHORIZATION [facility] [address] [place], [place] [address] Signed DESCRIPTION OF PROCEDURE: The patient was brought to the endoscopy suite and placed in the lateral decubitus position given intravenous sedation to the point of slurred speech and nystagmus with full cardiopulmonary monitoring. A well lubricated digital examination was undertaken showing a very stenotic pouch anastomotic area. The level of stenosis was quite obviously the ileoanal pouch anastomosis itself. This was rather uncomfortable and additional sedation was given. With slow and steady pressure ultimately the narrowed area was opened up. An Olympus video colonoscope was then inserted into the anal canal and manipulated beyond the pouch for approximately 100 cm. The scope was then withdrawn, examination throughout showed normal [place] small intestinal mucosa. Once the pouch area was encountered, careful inspection showed the staple lines to be intact and so forth. The scope was withdrawn through the anastomotic area that had been dilated without impediment. Repeat digital examination was undertaken showing no impediment to passage of the index finger. The scope was removed. The patient was taken to the recovery room in good condition. CONCLUDING DIAGNOSIS: Ileoanal pouch anastomotic stricture dilated by digital exam and endoscopic evaluation showing no more proximal stricture or other abnormality. PLAN: We will see her back in the office in about a month. She may require serial dilations and self dilation over time depending on the progress. MD ROSHNI Oleary/MODL /[id number] cc: Jaun Issa DC Electronically Signed By: AMBER CHAVES MD 06/08/24 1230 PATIENT NAME: JOSELUIS SKINNER OPERATIVE REPORT DATE OF : 80 REPORT #: [id number] PHYSICIAN: AMBER CHAVES MD PCP: JENARO VASQUEZ REPORT IS CONFIDENTIAL AND NOT TO BE RELEASED WITHOUT AUTHORIZATION [facility] [address] [place] [id number] Signed Copies: JAUN ISSA DC ~ Electronically Signed By: AMBER CHAVES MD 06/08/24 1230 PATIENT NAME: JOSELUIS SKINNER OPERATIVE REPORT DATE OF : 80 REPORT #: [id number] PHYSICIAN: AMBER CHAVES MD PCP: JENARO VASQUEZ REPORT IS CONFIDENTIAL AND NOT TO BE RELEASED WITHOUT AUTHORIZATION
== END 2024-06-05 13:35 | disposition home or self-care (01) ==
LOC: DS 10:26
PROVIDERS: ATTEND Surgery
PROC: 0DJD8ZZ Inspection of Lower Intestinal Tract, Via Natural or Artificial Opening Endoscopic (ICD-10-PCS; 2024-06-05)
PROC: 0D7Q8ZZ Dilation of Anus, Via Natural or Artificial Opening Endoscopic (ICD-10-PCS; principal; 2024-06-05 11:30)
DX: K91.858 Other complications of intestinal pouch (principal); K62.4 Stenosis of anus and rectum; Z86.0101 Personal history of adenomatous and serrated colon polyps; Z88.0 Allergy status to penicillin; Z88.5 Allergy status to narcotic agent; Z88.8 Allergy status to other drugs, medicaments and biological substances
CPT/HCPCS: 84703; 99153; G0500; J2250; J3010

== ENCOUNTER 2024-10-10 06:07 | Day surgery (SDC) | payer OTHER ==
[~2024-10-10] VITALS: Ht 165.1 cm; Wt 64.0 kg
[~2024-10-10 06:07] MED LIST changes: +LACTATED RINGER'S 1,000 ML IV SCH
[2024-10-10 06:21] VITALS: BP 111/65
[2024-10-10] MEDS ORDERED: CEFAZOLIN SODIUM 2 GM/20 ML SYR IV SCH (07:00)
[2024-10-10] MEDS ORDERED: IBLOOD GLUCOSE TEST STRIP 1 EA TEST VI PRN (07:00)
[2024-10-10] MEDS ORDERED: LIDOCAINE HCL 1% 5 ML SDV INJ ONE (07:00)
[2024-10-10] MEDS ORDERED: LIDOCAINE HCL 2% 5 ML SDV ONE (07:24)
[2024-10-10] MEDS ORDERED: MIDAZOLAM HCL 2 MG/2 ML VIAL ONE (07:32)
--- NOTE | 2024-10-10 07:34 | NUR ---
VISITED DURING SPIRITUAL CARE ROUNDS. PT IN OVERALL GOOD SPIRITS, NO IMMEDIATE NEEDS. RN [facility] PROVIDED SUPPORTIVE PRESENCE, HOSPITALITY, PRAYER. PT EXPRESSED GRATITUDE, HOPE, TRUST.
--- NOTE | 2024-10-10 08:14 | NUR ---
10/10/24 0814 Priyanka Garcia 0803-PT ARRIVES TO PACU, VIA STRETCHER, PT NOT RESPONSIVE TO TACTILE OR VERBAL STIMULI, RESTING W/ EYES CLOSED, VSS ON 6L VIA MASK, RR EVEN AND UNLABORED.
[2024-10-10] MEDS ORDERED: NALOXONE HCL 0.4 MG SYR IV PRN (08:15)
[2024-10-10] MEDS ORDERED: HYDROCODONE/ACETA 5/325 TAB PO PRN (08:15)
[2024-10-10] MEDS ORDERED: ACETAMINOPHEN 500 MG TAB PO PRN (08:15)
[2024-10-10] MEDS ORDERED: IBUPROFEN 600 MG TAB PO PRN (08:15)
[2024-10-10] MEDS ORDERED: IBUPROFEN600 MG PO (08:16)
[2024-10-10] MEDS ORDERED: ACETAMINOPHEN500 MG PO (08:16)
[2024-10-10] MEDS ORDERED: HYDROCODON-ACE1 EA10 PO (08:16)
[2024-10-10 09:08] VITALS: BP 104/60
--- NOTE | 2024-10-10 09:08 | NUR ---
PT ARRIVED BACK TO ON RA. PT AROUSABLE, BUT EASILY FALLS BACK ASLEEP. REPORT RECEIVED FROM SECURITY SERVICES MANAGER. PT WITH SALINA PAD AND MESH PANTIES IN PLACE AND LAYING ON L SIDE. DRSG VISUALIZED AND WITH SMALL AMT OF SANGUINEOUS DRAINAGE NOTED. PT REPORTS PAIN IN RECTUM TO BE AT 2/10 AND DECLINES FURTHER PAIN MEDS AT THIS TIME. PT DENIES NAUSEA WHEN ASKED. PT REPORTED TO HAVE TAKEN PO FOOD AND FLUIDS WELL, W/O ISSUES IN PACU. ICE WATER PROVIDED WELL PUDDING. IV SITE ASSESSED. VS TAKEN. BED IN LOW POSITION, CALL LIGHT WITHIN PT REACH. ALL QUESTIONS ANSWERED.
--- NOTE | 2024-10-10 09:28 | NUR ---
DR. CHAVES IN AT PTS BEDSIDE TO DISCUSS PROCEDURE AND F/U WITH PT.
[2024-10-10 10:05] VITALS: BP 99/56
--- NOTE | 2024-10-10 10:20 | NUR ---
6208-PT UP TO RESTROOM WITH RN ASSIST. PT ABLE TO VOID APPROX 400 ML OF CLR, PALE, YELLOW URINE. SALINA PAD REPLACED. NO ADDITIONAL DRAINAGE NOTED ON SALINA-PAD. PT WITH RN ASSIST BACK TO ROOM AND DRESSING FOR DISCHARGE. CALL LIGHT WITHIN PT REACH. PERSONAL BELONGINGS ALSO WITHIN PT REACH. 1004-INTO PTS ROOM FOR ROUTINE REASSESSMENT. VS TAKEN. BP SOFT. DR. CHAVES AWARE AND OKAY WITH PT DISCHARGING, PTS BASELINE BP'S NOT MUCH DIFFERENT. IV SITE ASSESSED. PT REPORT PAIN 1/10 AND DENIES NAUSEA. PT TAKING PO FOOD AND FLUIDS WELL. SALINA PAD CDI. VERBAL AND WRITTEN DISCHARGE INSTRUCTIONS REVIEWED WITH PT. PT VERBALIZED UNDERSTANDING AND ALL QUESTIONS ANSWERED. PTPROVIDED HARD COPY RX. 1015-PTS SISTER CALLED FOR RIDE HOME. 1020-IV REMOVED. TIP APPEARS INTACT. PRESSURE DRSG APPLIED W/GAUZE AND COBAN. PT ASSISTED WITH DONNING SHOES AND INTO WC.
--- NOTE | 2024-10-10 10:30 | NUR ---
PT DISCHARGED FROM DS VIA WC TO PASSENGER SIDE OF HER SISTERS VEHICLE. PT LEFT WITH ALL PERSONAL BELONGINGS.
--- NOTE | 2024-10-13 13:44 | OR ---
[facility] [address], [place] [address] Signed DATE OF OPERATION: 10/10/2024 SURGEON: Amber Chaves MD PREOPERATIVE DIAGNOSIS: Anastomotic stricture (history of ileoanal pull-through). POSTOPERATIVE DIAGNOSIS: Anastomotic stricture (history of ileoanal pull-through). PROCEDURES: 1. Exam under anesthesia. 2. Sequential anastomotic stricture dilation to 28 mm. ANESTHESIA: Intravenous sedation with local (Rhys Fish, REQUIREMENTS ENGINEER). INDICATION: This 44-year-old woman is a patient of Dr. Jenaro Johnson of [place], [place]. 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 She has generally done well, but has had issues in the past several months of abdominal bloating and obstructive type symptoms. She was ultimately found to have a stricture at the ileoanal pouch anastomotic area. She has undergone flexible sigmoidoscopy showing no sign of stricture more proximally as had been postulated at one time. Digital dilation during flexible endoscopic evaluation was somewhat beneficial to her. Her obstruction and bloating type symptoms generally have resolved, though I have recommended more formal dilation of the anastomotic stricture mindful that recurrent stricture is a possibility. The risk of bleeding, infection, anastomotic disruption, and so forth were all reviewed with her. She understands and wished to proceed. FINDINGS: The area of prior stricture was far less than previous as she has undergone dilation during the endoscopic evaluation previously. Nevertheless, sequential dilation was undertaken up to a 28 mm blunt colonic sizing device. Minimal bleeding was noted. There were no complications and she tolerated the procedure well. DESCRIPTION OF PROCEDURE: The patient was brought to the operating room, placed in the prone flaco-knife position. Bowel prep consisted only of magnesium citrate x1. In the prone flaco-knife position, Electronically Signed By: AMBER CHAVES MD 10/13/24 1344 PATIENT NAME: JOSELUIS SKINNER OPERATIVE REPORT DATE OF : 80 REPORT #: [id number] PHYSICIAN: AMBER CHAVES MD PCP: JENARO JOHNSON REPORT IS CONFIDENTIAL AND NOT TO BE RELEASED WITHOUT AUTHORIZATION [facility] [address], [place] [address] Signed the buttocks were taped apart. A brief Betadine prep was undertaken. Digital examination showed the anastomotic stricture to be much improved compared to previously. More proximally, there was no sign of abnormality. Staple lines of prior pouch construction appeared to be intact and there was no other anatomic stricture noted. Sequential dilation with Hegar dilators was undertaken ultimately allowing for to be passed with all due care, which were well lubricated. Dilation was taken up to 28 mm, which she tolerated well. Inspection showed no sign of anastomotic disruption in any way but some mucosal cracking was noted. 3 mL of 0.25% Marcaine with epinephrine was injected locally. A peripad was applied. Minimal amount of cautery was used to bleeding sites. She was allowed to recover from sedation, taken to the recovery room in good condition. MD ROSHNI Oleary/KITTYL /[id number] cc: Dr. Jenaro Johnson Copies: ~ Electronically Signed By: AMBER CHAVES MD 10/13/24 1344 PATIENT NAME: NHAN SKINNERAFSHAN RIVERA OPERATIVE REPORT DATE OF : 80 REPORT #: [id number] PHYSICIAN: AMBER CHAVES MD PCP: JENARO JOHNSON REPORT IS CONFIDENTIAL AND NOT TO BE RELEASED WITHOUT AUTHORIZATION
== END 2024-10-10 10:30 | disposition home or self-care (01) ==
LOC: DS 06:07
PROVIDERS: ATTEND Surgery
PROC: 0D7Q7ZZ Dilation of Anus, Via Natural or Artificial Opening (ICD-10-PCS; principal; 2024-10-10 07:30)
DX: K91.858 Other complications of intestinal pouch (principal); Z88.0 Allergy status to penicillin; Z88.5 Allergy status to narcotic agent; Z88.8 Allergy status to other drugs, medicaments and biological substances
CPT/HCPCS: 00902; 84703; A9270; J0690; J2003; J2250; J2704; J7121